=== PATIENT | female | born 1980 | race Hispanic/Latino ===

== ENCOUNTER 2016-10-13 22:38 | Emergency (ER) | payer OTHER ==
[~2016-10-13 22:38] MED LIST: BENTYL10 MG PO; LEVSIN/SL0.125 MG SL; PRILOSEC OTC20 MG PO; PROTONIX 40MG T40 MG PO; REGLAN10 MG PO; TRAMADOL50 MG PO; ULTRAM(MONOGRAP50 MG PO; ZOFRAN ODT4 MG PO; ZOFRAN4 M1 SL
[2016-10-13 22:48] VITALS: BP 137/85
--- NOTE | 2016-10-13 23:47 | RADIOLOGY REPORT ---
EXAMINATION: XR CHEST CLINICAL INFORMATION: Cough. Chest pain COMPARISON: Chest x-ray 10/17/2010 TECHNIQUE: 2 views of the chest were obtained. FINDINGS: No significant abnormality is noted involving the heart, lungs, mediastinum, bony thorax or soft tissues. IMPRESSION: Unremarkable examination.
--- NOTE | 2016-10-13 23:59 | ED DYSPNEA/ASTHMA COMPLAINT ---
History of Present Illness General Chief Complaint: Dyspnea (COPD, CHF, Other) Stated Complaint: PER PT FEELS LIKE CANT BREATHE Source: patient, family Exam Limitations: no limitations Vital Signs & Intake/Output Vital Signs & Intake/Output Vital Signs Date Time Temp Pulse Resp B/P B/P Pulse O2 O2 Flow FiO2 Mean Ox Delivery Rate 10/13 2320 98 Room Air 10/13 2248 98.6 88 18 137/85 98 Room Air ED Intake and Output 10/14 0000 10/13 1200 Intake Total Output Total Balance Patient 208 lb Weight Weight Reported by Patient Measurement Method Allergies Coded Allergies: NO KNOWN ALLERGIES (04/08/15) Reconcile Medications Cyclobenzaprine HCl 10 MG TABLET 1 TAB PO Q8P PAIN OR SPASM Dicyclomine Hydrochloride (Bentyl) 10 MG CAP 1 TAB PO 4 TIMES/DAY PRN PAIN/ SPASM Hyoscyamine Sulfate (Levsin-Sl) 0.125 MG TAB 1-2 TAB SL Q4P PRN abd pain Ibuprofen 600 MG TABLET 1 TAB PO TID PRN PAIN with food Methylprednisolone. (Medrol) 4 MG TAB.DS.PK 1 DP PO AD ASTHMA 6 on day 1 then reduce by one tablet daily until gone METOCLOPRAMIDE HCL (Reglan) 10 MG TAB 1 TAB PO SEE ADMIN CRITERIA GERD 1 tab 30 minutes before eating and at bedtime Omeprazole (Prilosec Otc) 20 MG TCP 1 TAB PO QDAY STOMACH BURNING Ondansetron (Zofran Odt) 4 MG ODT 1 TAB PO 4 TIMES/DAY PRN NAUSEA Ondansetron (Zofran Odt) 4 MG ODT 1 ODT SL Q6P PRN NAUSEA Pantoprazole Sodium (Protonix) 40 MG TAB 40 MG PO DAILY ACID REFLUX Tramadol HCl (Ultram) 50 MG TAB 1 TAB PO 4 TIMES/DAY PRN PAIN TWENTY TABS...[id number] TRAMADOL HCL (Tramadol) 50 MG TAB 1-2 TAB PO Q6P PRN severe pain Triage Note: TRIAGE: TO ED C/O DIFF BREATHING WORSENING OVER THE LAST THREE DAYS. 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 O2 SAT 98% RA. REPORTS SHE WAS DX WITH BRONCHITIS 10 DAYS AGO AND GIVEN ZPACK, LAST DOSE WEDNESDAY. NOTABLE BRONCHIAL DRY COUGH, LUNG SOUNDS CLEAR BILATERALLY. ALSO C/O PAIN FROM NECK INTO RIGHT UPPER SHOULDER AND THEN DOWN ARM. FEELS TIGHTNESS IN CHEST. HX ANXIETY. VSS Triage Nurses Notes Reviewed? yes : No Patient currently breastfeeds: No HPI: Patient presents with sudden aching sensation in the back of her neck that radiates to her right shoulder blade and into her back. The pain is aching in nature. The pain is 7 out of 10. The pain started after a coughing episode. Patient states that she is asthmatic and recently finished antibiotics for asthmatic bronchitis. Patient denies any fevers or chills. The cough is nonproductive. Patient states that she is still wheezing a bit but it is getting better. Patient denies any chest tightness or orthopnea. Past History Travel History Traveled to [place] past 21 day No Medical History Any Pertinent Medical History? 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 No Review of Systems Review of Systems Constitutional: Reports: no symptoms. EENTM: Reports: no symptoms. Respiratory: Reports: see HPI, cough, wheezing. Cardiovascular: Reports: no symptoms. GI: Reports: no symptoms. Genitourinary: Reports: no symptoms. Musculoskeletal: Reports: see HPI, back pain, muscle pain, neck pain. Skin: Reports: no symptoms. Neurological/Psychological: Reports: no symptoms. Hematologic/Endocrine: Reports: no symptoms. Immunologic/Allergic: Reports: no symptoms. All Other Systems: Reviewed and Negative Physical Exam Physical Exam General Appearance: well developed/nourished, alert, awake, mild distress Head: atraumatic, normal appearance Eyes: Bilateral: PERRL, EOMI. Ears, Nose, Throat: normal pharynx, normal ENT inspection, hearing grossly normal Neck: normal inspection, supple, full range of motion, no midline tenderness, MUSCLE SPASM Respiratory: wheezing, [employer] Cardiovascular: regular rate/rhythm, normal peripheral pulses Gastrointestinal: normal bowel sounds Extremities: normal inspection, normal capillary refill, normal range of motion Neurologic/Psych: no motor/sensory deficits, awake, alert, oriented x 3, normal gait, normal mood/affect Skin: intact, normal color, warm/dry Lymphatic: no anterior cervical erma Core Measures ACS in differential dx? No Severe Sepsis Present: No Septic Shock Present: No Progress Differential Diagnosis: asthma, bronchitis, COPD, pulmonary embolism, pneumonia, pneumothorax Plan of Care: Orders Procedure Date/time Status URINE 10/13 2309 Complete URINALYSIS 10/13 2309 Complete EKG 10/13 2252 Active Laboratory Tests 10/13/162309: Urine Color YEL, Urine Clarity CLEAR, Urine pH 6.0, Ur Specific [place] <= 1.005 , Urine Protein NEG, Urine Ketones NEG, Urine Nitrite NEG, Urine Bilirubin NEG, Urine Urobilinogen 0.2, Ur Leukocyte Esterase NEG, Ur Microscopic SEDIMENT EXAMINED, Urine RBC RARE, Ur Epithelial Cells FEW, Urine Hemoglobin TRACE-INTACT , Urine Glucose NEG, Urine Test NEGATIVE Diagnostic Imaging: Viewed by Me: Radiology Read. Discussed w/RAD: Radiology Read. CXR Impression: PATIENT: BETH GLEASON PRESENT AGE: 35 PATIENT ACCOUNT NO: [id number] : 81 LOCATION: [facility] ORDERING PHYSICIAN: MAURICIO BEAN DO (TBS) SERVICE DATE: 10/13/16 EXAM TYPE: RAD - XRY- CHEST XRAY, PA AND LATERAL EXAMINATION: XR CHEST CLINICAL INFORMATION: Cough. Chest pain COMPARISON: Chest x-ray 10/17/2010 TECHNIQUE: 2 views of the chest were obtained. FINDINGS: No significant abnormality is noted involving the heart , lungs, mediastinum, bony thorax or soft tissues. IMPRESSION: Unremarkable examination. DICTATED BY: EMILY PRATHER MD DATE/TIME DICTATED:10/13/162341 FOUNTAIN MANAGER:NURIS DATE/TIME TRANSCRIBED:10/13/162341 CONFIDENTIAL, DO NOT COPY WITHOUT APPROPRIATE AUTHORIZATION. <Electronically signed in Other Vendor System> SIGNED BY: EMILY PRATHER MD 10/13/162346 Initial ED EKG: NSR, no ST T wave changes Prior EKG: unchanged Departure Departure Disposition: HOME OR SELF CARE Condition: Stable Clinical Impression Primary Impression: Muscle spasm Secondary Impressions: Asthma Referrals: PATIENT HAS NO PRIMARY CARE DR (PCP/Family) Additional Instructions: USE MOIST HEAT RETURN IF SYMPTOMS WORSEN OR FOR ANY CONCERNS Departure Forms: Customer Survey General Discharge Information Prescriptions: Current Visit Scripts Methylprednisolone. (Medrol) 1 DP PO AD #1 DP 6 on day 1 then reduce by one tablet daily until gone Ibuprofen 1 TAB PO TID PRN PAIN #20 TAB with food Cyclobenzaprine HCl 1 TAB PO Q8P #20 TAB Critical Care Note Critical Care Note Critical Care Time: non-applicable
[2016-10-14] MEDS ORDERED: IBUPROFEN600 M1 PO (00:20)
[2016-10-14] MEDS ORDERED: MEDROL4 M2 PO (00:20)
[2016-10-14] MEDS ORDERED: CYCLOBENZAPRINE10 M1 PO (00:20)
== END 2016-10-14 00:42 ==
LOC: ERH 22:38
DX: M62.838 Other muscle spasm (principal); J45.909 Unspecified asthma, uncomplicated
CPT/HCPCS: 81001; 81025; 93005; 93010